=== PATIENT | male | born 1985 | race Caucasian/White ===

== ENCOUNTER 2022-07-03 13:41 | Outpatient (CLI) | payer OTHER, SELFPAY ==
--- NOTE | 2022-07-03 16:00 | CRLHL7_ITS ---
For Patients: As a result of the Century Cures Act, medical imaging exams and procedure reports are released immediately into your electronic medical record. You may view this report before your referring provider. If you have questions, please contact your health care provider. Indication: Right testicle tenderness x2 days, status post vasectomy October 2021 Technique: Ultrasound of the scrotum and contents. Sonographic ruiz-scale images were obtained with spectral and color Doppler waveform and spectral waveform analysis of the testicles. Comparison: None. Findings: Bother testicles are normal in size and echotexture. Right testicle measures 4.9 x 2.4 x 2.3 cm. Left testicle measures 5.3 x 3.0 x 2.4 cm. No masses. No suspicious calcifications. Normal arterial and venous color Doppler blood flow and spectral waveforms are present in both testicles. Simple anechoic 4 mm cyst adjacent and medial to the left epididymis. Area of lump and tenderness lateral to the right testicle appears to correlate with the vasectomy clips. Epididymis: Unremarkable bilaterally. Normal blood flow. Other: No sign of hydrocele. No sign of varicocele. Scrotal wall is normal. Impression: 1. No testicular mass or other acute finding. 2. Area of lump and tenderness lateral to the right testicle appears to correlate with vasectomy clip. Dictated by Salvatore Aguilera MD @ 07/06/2022 8:17:39 AM (Electronically Signed)
== END 2022-07-03 13:42 | disposition home or self-care (01) ==
PROVIDERS: PCP Family Medicine; Visit Provider Student in an Organized Health Care Education/Training Program
DX: N50.89 Other specified disorders of the male genital organs (principal)
CPT/HCPCS: 76870; 93976

== ENCOUNTER 2022-09-03 08:27 | Outpatient (CLI) | payer OTHER, SELFPAY ==
[2022-09-03 12:04] LABS: Cholesterol* 215 mg/dL (90-199); Glucose* 86 mg/dL (60-115); HDL Cholesterol* 39 mg/dL (>=40); LDL Cholesterol Calculated 149 mg/dL (<100); Triglycerides* 136 mg/dL (40-149)
== END 2022-09-03 08:28 | disposition home or self-care (01) ==
PROVIDERS: PCP Family Medicine; Visit Provider Family Medicine
DX: Z13.1 Encounter for screening for diabetes mellitus (principal); Z13.6 Encounter for screening for cardiovascular disorders
CPT/HCPCS: 80061; 82947

== ENCOUNTER 2023-10-20 08:29 | Emergency (ER) | payer OTHER, SELFPAY ==
[2023-10-20 08:45] VITALS: BP 154/89; PULSE 98; RESP 20; TEMP 36.4; O2SAT 99; BMI 26.5
[2023-10-20 09:00] VITALS: BP 140/96
[2023-10-20 09:35] VITALS: O2SAT 99
--- NOTE | 2023-10-20 09:35 | CRLHL7_ITS ---
For Patients: As a result of the Century Cures Act, medical imaging exams and procedure reports are released immediately into your electronic medical record. You may view this report before your referring provider. If you have questions, please contact your health care provider. INDICATION: Chest pain. TECHNIQUE: Chest 1 views. COMPARISON: None. FINDINGS: Cardiovasculature and mediastinum: Heart size and vasculature are normal in caliber and appearance. Lungs and pleural spaces: Lungs are clear. No sign of infiltrate or mass. No sign of pleural effusion. No pneumothorax. Bones and soft tissues: No significant findings. IMPRESSION: No acute or significant findings. Dictated by Jack Clark MD @ 10/20/2023 10:13:38 AM (Electronically Signed)
--- NOTE | 2023-10-20 09:36 | ED.GENADULT ---
HPI - General Adult General Chief complaint: Anxiety Stated complaint: chest pain Time Seen by Provider: 10/20/23 08:48 History of Present Illness HPI narrative: [age] year white male developed some left-sided pressure under his armpit yesterday, went to bed slept well, did not have any diaphoresis shortness of breath or other problem. He does have ADD and he is on Adderall. The patient woke up this morning had the similar symptoms and he present to the ED. It is little bit worse with a be duction and external internal rotation of his shoulder. He does not be feel sick with a cold cough or flu type symptoms. He has had no leg swelling or edema, no history of bleeding or clotting. Patient does have history of white coat hypertension and ADHD he is on methylphenidate. Related Data Previous Rx's Medication Instructions Recorded methylphenidate HCl 20 mg tablet 20 mg PO BID #60 tabs 08/16/23 Allergies Allergy/AdvReac Type Severity Reaction Status Date / Time Penicillin AdvReac Unknown Unknown Uncoded 03/30/23 10:01 Review of Systems Status of ROS: Reports: 10 or more systems reviewed and unremarkable except as noted in History and below [facility] Medical History Scrotum pain ?N50.82 - Scrotal pain (ICD-10) Scrotal mass ?N50.89 - Other specified disorders of the male genital organs (ICD-10) Surgical History S/P vasectomy ?Z98.52 - Vasectomy status (ICD-10) Social History Smoking Status: Never smoker How often do you have a drink containing alcohol: 2-3 times a week How many standard drinks containing alcohol do you have on a typical day: 1 or 2 How often do you have six or more drinks on one occasion: Never AUDIT-C Alcohol total score: 3 Non-prescribed substance use: marijuana (any form) Little interest or pleasure in doing things: not at all Feeling down, depressed, or hopeless: not at all Exam Narrative: Exam Narrative: Objective: Patient's vital signs look within normal limits He is alert or x3 HEENT is unremarkable no facial asymmetry neck is supple chest is clear no rales or wheezing heart rhythm regular heart murmur Abdomen benign soft Chest wall on the left shows no tenderness but with internal external rotation of her shoulder with abduction he does have some tenderness in his left axilla area. No palpable masses. Extremities are Const: Vital Signs, click to edit/add: Vital Signs - 24 hr 10/20/23 08:45 10/20/23 09:00 10/20/23 09:35 Temperature 97.5 F L Pulse Rate [Pulse Oximeter] 98 Respiratory Rate 20 Blood Pressure [Ri ght Upper Arm] 154/89 H 140/96 H Pulse Oximetry 99 99 Oxygen Delivery Me thod Room Air 10/20/23 10:00 10/20/23 10:34 Temperature Pulse Rate [Pulse Oximeter] 85 Respiratory Rate 16 Blood Pressure [Ri ght Upper Arm] 142/86 H Pulse Oximetry 97 Oxygen Delivery Me thod Room Air Course Vital Signs Vital signs: Initial Vital Signs Temperature 97.5 F L 10/20/23 08:45 Temperature Source Temporal Artery Scan 10/20/23 08:45 Pulse Rate 98 10/20/23 08:45 Respiratory Rate 20 10/20/23 08:45 Blood Pressure 154/89 H 10/20/23 08:45 Blood Pressure Mean 110 H 10/20/23 08:45 Blood Pressure Position Supine 10/20/23 08:45 Pulse Oximetry 99 10/20/23 08:45 Oxygen Delivery Method Room Air 10/20/23 08:45 Vital Signs Temperature 97.5 F L 10/20/23 08:45 Pulse Rate 98 10/20/23 08:45 Respiratory Rate 20 10/20/23 08:45 Blood Pressure 154/89 H 10/20/23 08:45 Pulse Oximetry 99 10/20/23 08:45 Oxygen Delivery Method Room Air 10/20/23 08:45 Temperature 97.5 F L 10/20/23 08:45 Pulse Rate 85 10/20/23 10:34 Respiratory Rate 16 10/20/23 10:34 Blood Pressure 142/86 H 10/20/23 10:00 Pulse Oximetry 97 10/20/23 10:34 Oxygen Delivery Method Room Air 10/20/23 10:34 Medications Administered Medications: Discontinued Medications Generic Name Dose Route Start Last Admin Trade Name Freq PRN Reason Stop Dose Admin Aspirin 324 mg 10/20/23 09:35 10/20/23 09:56 Aspirin 81 Mg Tab.Chew PO 10/20/23 09:36 324 mg ONCE ONE Administration Medical Decision Making MDM Narrative Medical decision making narrative: [age] year white male with a good medical history, presents with some left axillary left lateral chest wall pressure. He denies trauma or injury. He has no breathing difficulty her anterior chest pain. No diaphoresis or nausea. No history of coronary disease. I think at this point his EKG by my read shows normal sinus rhythm some sinus arrhythmia but no acute ST T wave changes. I think a chest x-ray D-dimer and labs to be appropriate. Will given aspirin put him on a playground monitor and oximeter. And if his labs look reassuring I think can go home with chest wall inflammation or discomfort. At this point I have low suspicion for coronary disease but I think that would be appropriate to rule out the above-mentioned studies. Addendum 10:48 a.m.: The patient's chest x-ray by my read looks unremarkable, his EKG by my read is also normal. The patient's laboratory studies also were unremarkable, including a negative D-dimer negative troponin, normal white count hemoglobin, normal ER profile. At this point I think this is chest walled problem and he can simply use some Advil or Aleve, observation, light activity for the next few days and recheck with primary care as needed, Return to ED sooner problems or concerns. Lab Data Labs: Lab Results 10/20/23 10/20/23 Range/Units 09:35 09:48 WBC 7.17 (4.50-11.00) K/uL RBC 5.64 (4.30-5.90) m/uL Hgb 16.4 (13.5-17.5) gm/dL Hct 48.2 (37.0-53.0) % MCV 86 (80-100) fL MCH 29 (26-34) pg MCHC 34 (32-36) gm/dL RDW Coeff of Jacky 11.7 (11.5-15.5) % Plt Count 255 (140-440) K/uL Neut % (Auto) 72.1 H (42.0-72.0) % Lymph % (Auto) 20.5 (20-44) % [place] % (Auto) 5.6 (0.0-11.0) % Eos % (Auto) 1.4 (0.0-7.0) % Baso % (Auto) 0.1 (0.0-3.0) % Neut # (Auto) 5.20 (1.7-7.0) K/uL Lymph # (Auto) 1.47 (0.90-2.90) K/uL [place] # (Auto) 0.40 (0.00-0.90) K/UL Eos # (Auto) 0.10 (0.00-0.50) K/uL Baso # (Auto) 0.01 (0.00-0.30) K/uL Abs Immat Gran (auto) 0.02 (0.00-0.30) K/uL Imm/Tot Granulo (auto) 0.3 % D-Dimer Quant (PE/DVT) < 0.27 (0.00-0.50) ug/ml Sodium 139 (135-149) mmol/L Potassium 4.6 (3.6-5.1) mmol/L Chloride 103 (96-114) mmol/L Carbon Dioxide 26 (20-32) mmol/L Anion Gap 10 (7-15) mEq/L BUN 18 (5-24) mg/dL Creatinine 0.7 (0.5-1.5) mg/dL Estimated Creat Clear 150.63 Estimated GFR 122 ml/min Glucose 105 (60-115) mg/dL Calcium 9.6 (8.4-10.6) mg/dL C-Reactive Protein 0.6 (0.5-1.0) mg/dL POC Troponin I 0.00 L (0.01-0.04) ng/ml Discharge Plan Discharge Clinical Impression: Acute chest wall pain Patient Disposition: Home, Self-Care Condition: Stable Additional Instructions: light activity for few days, Advil or Aleve for the next 3-5 days. Would recommend 2 Aleve twice a day for the next 5 days would be a reasonable course of action. Return to see primary care as needed. Return to ED problems or concerns in the interim. Activity Level: Light activity Discharge Diet: Regular Prescriptions: No Action methylphenidate HCl 20 mg tablet 20 mg PO BID Qty: 60 0RF Follow Up/Referrals: Scott Mora MD [Primary Care Provider] - Stand Alone Forms: CoSchedule Info Instructions
[2023-10-20] MEDS: ASPIRIN 81 MG TAB.CHEW 324 MG PO (09:56)
[2023-10-20 10:00] VITALS: BP 142/86
[2023-10-20 10:02] LABS: Basophils Absolute Auto 0.01 K/uL (0.00-0.30); Basophils Percent Auto 0.1 % (0.0-3.0); Eosinophils Percent Auto 1.4 % (0.0-7.0); Hematocrit 48.2 % (37.0-53.0); Hemoglobin* 16.4 gm/dL (13.5-17.5); Immature Granulocytes Abs Auto 0.02 K/uL (0.00-0.30); Immature Granulocytes Pct Auto 0.3 %; Lymphocytes Absolute Auto 1.47 K/uL (0.90-2.90); Lymphocytes Percent Auto 20.5 % (20-44); Mean Corpuscular HGB Conc 34 gm/dL (32-36); Mean Corpuscular Hemoglobin 29 pg (26-34); Mean Corpuscular Volume 86 fL (80-100); Monocytes Percent Auto 5.6 % (0.0-11.0); Neutrophils Percent Auto 72.1 % (42.0-72.0); Platelet Count* 255 K/uL (140-440); RDW Coefficient of Variation % 11.7 % (11.5-15.5); Red Blood Count 5.64 m/uL (4.30-5.90); White Blood Count* 7.17 K/uL (4.50-11.00)
[2023-10-20 10:11] LABS: Slide Review Reflex No
[2023-10-20 10:18] LABS: Chloride* 103 mmol/L (96-114); Sodium* 139 mmol/L (135-149)
[2023-10-20 10:19] LABS: Potassium* 4.6 mmol/L (3.6-5.1)
[2023-10-20 10:21] LABS: Creatinine* 0.7 mg/dL (0.5-1.5); Est. Creatinine Clearance* 150.63; Estimated Glomerular Filt Rate 122 ml/min
[2023-10-20 10:22] LABS: Blood Urea Nitrogen* 18 mg/dL (5-24); Calcium* 9.6 mg/dL (8.4-10.6); Carbon Dioxide* 26 mmol/L (20-32); Glucose* 105 mg/dL (60-115)
[2023-10-20 10:25] LABS: C Reactive Protein* 0.6 mg/dL (0.5-1.0)
[2023-10-20 10:27] LABS: Anion Gap 10 mEq/L (7-15)
[2023-10-20 10:29] LABS: D Dimer Quantitative* < 0.27 ug/ml (0.00-0.50)
[2023-10-20 10:34] VITALS: PULSE 85; RESP 16; O2SAT 97
== END 2023-10-20 10:57 | disposition home or self-care (01) ==
PROVIDERS: Emergency Provider Family Medicine; PCP Family Medicine
DX: R07.9 Chest pain, unspecified (principal)
CPT/HCPCS: 36415; 71045; 80048; 84484; 85025; 85379; 86140; 93005; 94761; 95992; 99284; 99285; A9270

== ENCOUNTER 2023-10-27 08:06 | Outpatient (CLI) | payer OTHER, SELFPAY | END 2023-10-27 08:07 | disposition home or self-care (01) | LOC: NFLDREF 12:03 | PROVIDERS: PCP Family Medicine; Referring Provider Family Medicine; Visit Provider Family Medicine | DX: Z00.00 Encounter for general adult medical examination without abnormal findings (principal); E78.5 Hyperlipidemia, unspecified; I10 Essential (primary) hypertension; F90.9 Attention-deficit hyperactivity disorder, unspecified type | CPT/HCPCS: 80061 ==

== ENCOUNTER 2024-11-27 07:42 | Outpatient (CLI) | payer BC, SELFPAY | END 2024-11-27 07:43 | disposition home or self-care (01) | PROVIDERS: PCP Family Medicine; Visit Provider Family Medicine | DX: E78.5 Hyperlipidemia, unspecified (principal); Z13.1 Encounter for screening for diabetes mellitus | CPT/HCPCS: 80061; 82947 ==